=== PATIENT | male | born 1960 | race Caucasian/White ===

== ENCOUNTER 2018-12-06 11:24 | Emergency (ER) | payer OTHER ==
[2018-12-06] MEDS ORDERED: LABETALOL 20 MG/4ML SYRINGE IV ONE (12:40)
--- NOTE | 2018-12-06 12:42 | RAD REPORT ---
EXAM DESCRIPTION: CT - Head Brain Wo Cont - 12/06/2018 12:33 pm CLINICAL HISTORY: HEADACHE COMPARISON: HEAD BRAIN W O CONTRAST dated 07/13/2014; HEAD BRAIN W O CONTRAST dated 05/16/2013 TECHNIQUE: All CT scans are performed using dose optimization technique as appropriate and may inclu de automated exposure control or mA/KV adjustment according to patient size. FINDINGS: No intracranial hemorrhage, hydrocephalus or extra-axial fluid collection.No areas of brai n edema or evidence of midline shift. The paranasal sinuses and mastoids are clear. The calvarium is intact. IMPRESSION: No acute intracranial abnormality.
--- NOTE | 2018-12-06 12:49 | RAD REPORT ---
EXAM DESCRIPTION: RAD - Chest Single View - 12/06/2018 12:43 pm CLINICAL HISTORY: MALAISE Chest pain. COMPARISON: CHEST SINGLE VIEW dated 02/13/2011 FINDINGS: Portable technique limits examination quality. The lungs are grossly clear. The heart is normal in size. No displaced fractures. IMPRESSION: No acute intrathoracic process suspected.
[2018-12-06 13:19] LABS: Absolute Lymphocytes (CBC) 1.3 K/uL (0.7-4.9); Absolute Neutrophil 11.2 K/uL (1.8-8.0); Basophils % 0.3 % (0-1.3); Hematocrit 43.8 % (39.6-49.0); Lymphocytes % 9.9 % (15.3-44.8); MPV 8.1 fL (7.6-11.3); Monocytes % 7.1 % (3.3-12.3); RBC Red Blood Cell Count 4.38 M/uL (4.33-5.43)
[2018-12-06 13:30] LABS: Protime INR 0.84
[2018-12-06 13:44] LABS: ALT/SGPT 70 U/L (12-78); AST/SGOT 44 U/L (15-37); Albumin 3.7 g/dL (3.4-5.0); Alkaline Phosphatase 54 U/L (45-117); BUN Blood Urea Nitrogen 18 mg/dL (7-18); Bicarbonate 29 mmol/L (21-32); Bilirubin Direct 0.2 mg/dL (0-0.2); Bilirubin Total 0.6 mg/dL (0.2-1.0); Glucose Level 131 mg/dL (74-106); Magnesium 2.8 mg/dL (1.8-2.4); NT PRO-BNP 58 pg/mL (<125); Potassium 4.2 mmol/L (3.5-5.1); Protein, Total 7.2 g/dL (6.4-8.2); Sodium Level 136 mmol/L (136-145); Troponin (Emerg Dept Use Only) < 0.02 ng/mL (0.0-0.045)
--- NOTE | 2018-12-06 14:23 | ER ---
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 Transition of care: patient was not received from another setting of care. Onset of symptoms was December 06, 2018. Risk Assessment: Do you want to hurt yourself or someone else? Patient reports no desire to harm self or others. Initial Sepsis Screen: Does the patient meet any 2 criteria? No. Patient's initial sepsis screen is negative. Does the patient have a suspected source of infection? No. Patient's initial sepsis screen is negative. Care prior to arrival: None. 11:36 Method Of Arrival: Ambulatory ph 11:36 Acuity: LOLI 3 ph Historical: - Allergies: 11:41 No Known Allergies; ph - Home Meds: 11:41 Allopurinol Oral [Active]; Vasotec Oral [Active]; Niacin Oral [Active]; aspirin 81 mg ph Oral TbEC 1 tab once daily [Active]; Omeprazole Oral [Active]; - PMHx: 11:41 Hypertension; Gout; GERD; ph - Immunization history:: Adult Immunizations unknown. - Social history:: Smoking status: Patient/guardian denies using tobacco. - Ebola Screening: : No symptoms or risks identified at this time. Screenin:45 Abuse screen: Denies threats or abuse. Nutritional screening: No deficits noted. em Tuberculosis screening: No symptoms or risk factors identified. Fall Risk None identified. Assessment: 12:35 General: Appears in no apparent distress. comfortable, Behavior is calm, cooperative. em Pain: Denies pain. Quality of pain is described as pressure, Pain began several weeks. Neuro: Level of Consciousness is awake, alert, obeys commands, Oriented to person, place, time, situation, Reports head feeling like there's pressure in it. Denies weakness dizziness. Cardiovascular: Capillary refill < 3 seconds Patient's skin is warm and dry. Rhythm is sinus rhythm. Respiratory: Airway is patent Respiratory effort is even, unlabored, Respiratory pattern is regular, symmetrical. GI: Abdomen is obese, Patient currently denies nausea, vomiting. : No signs and/or symptoms were reported regarding the genitourinary system. Derm: Skin is intact, Skin is pink, warm \\T\\ dry. Musculoskeletal: Range of motion: intact in all extremities. 12:45 Reassessment: Patient appears in no apparent distress at this time. Patient and/or iw family updated on plan of care and expected duration. Pain level reassessed. Patient is alert, oriented x 3, equal unlabored respirations, skin warm/dry/pink. I agree with above assessment by Tristan Armando LVN. 13:58 Reassessment: Patient appears in no apparent distress at this time. Patient and/or em family updated on plan of care and expected duration. Pain level reassessed. Patient is alert, oriented x 3, equal unlabored respirations, skin warm/dry/pink. Patient states feeling better. Patient states symptoms have improved. 15:03 Reassessment: Patient appears in no apparent distress at this time. Patient and/or em family updated on plan of care and expected duration. Pain level reassessed. Patient is alert, oriented x 3, equal unlabored respirations, skin warm/dry/pink. BP 112/58, HR 91, provider notified, new medication orders received Patient denies pain at this time. Patient states feeling better. Vital Signs: 11:39 BP 174 / 108; Pulse 97; Resp 16; Temp 97.6; Pulse Ox 97% on R/A; ph 13:00 BP 174 / 110; Pulse 106; Resp 18; Pulse Ox 98% on R/A; Pain 0/10; em 13:18 BP 162 / 102; Pulse 93; Resp 22; Pulse Ox 96% on R/A; em 13:59 BP 159 / 94; Pulse 90; Resp 21; Pulse Ox 97% on R/A; Pain 0/10; em 15:04 BP 176 / 111; Pulse 91; Resp 21; Pulse Ox 100% on R/A; Pain 0/10; em ED Course: 11:26 Patient arrived in ED. as 11:39 Triage completed. ph 11:41 Arm band placed on. ph 11:51 Tristan Armando LVN is Primary Nurse. em 11:55 Jim Hirsch MD is Attending Physician. gs 12:[address] via wheelchair. jj2 12:34 CT Head Brain wo Cont In Process Unspecified. EDMS 12:43 X-ray completed. Patient tolerated procedure well. Patient moved back from radiology. jb2 12:44 XRAY Chest (1 view) In Process Unspecified. EDMS 12:45 Patient has correct armband on for positive identification. Placed in gown. Bed in low em position. Call light in reach. Side rails up X2. Adult w/ patient. jeweler apprentice on. Pulse ox on. NIBP on. 13:00 Initial lab(s) drawn, by me, sent to lab. Inserted saline lock: 20 gauge in right em antecubital area, using aseptic technique. Blood collected. 13:00 Patient maintains SpO2 saturation greater than 95% on room air. em 15:06 No provider procedures requiring assistance completed. IV discontinued, intact, em bleeding controlled, No redness/swelling at site. Pressure dressing applied. Administered Medications: 13:10 Drug: Labetalol 20 mg Route: IVP; Infused Over: 2 mins; Site: right antecubital; tw2 14:00 Follow up: Response: No adverse reaction; Blood pressure is lowered em 15:05 Drug: Labetalol 50 mg Route: PO; em 15:06 Follow up: Response: Medication administered at discharge. em Outcome: 14:23 Discharge ordered by . gs 15:06 Discharged to home ambulatory, with family. em 15:06 Condition: good 15:06 Discharge instructions given to patient, family, Instructed on discharge instructions, follow up and referral plans. medication usage, Demonstrated understanding of instructions, follow-up care, medications, Prescriptions given X 1. 15:10 Patient left the ED. em Signatures: Dispatcher [employer] EDMS Chris Ngo jb2 Ismael Carrillo jj2 Tristan Armando LVN ASSISTANT CASE MANAGER em Whitney Peralta Irene, RN RN Cecilia Michaud RN RN Jeanie Metz RN RN tw2 Jim Hirsch, MD gs
--- NOTE | 2018-12-06 14:24 | EDPHYS ---
Physician Documentation [facility] Name: Walt Alvarado Age: 58 yrs Sex: Male : 1960 Arrival Date: 12/06/2018 Time: 11:26 Bed 19 Private MD: ED Physician Jim Hirsch HPI: 12/06 14:17 This 58 yrs old Male presents to ER via Ambulatory with complaints of Chest gs Pain, Neck Pain, >24Hrs Old, Eye Pain. 14:17 The patient or guardian reports chest pain that is located primarily in the anterior gs chest wall. Onset: 2 day(s) ago. The pain does not radiate. Associated signs and symptoms: Pertinent positives: hypertension,headache. The chest pain is described as dull. Duration: The patient or guardian reports multiple episodes, that wax and wane, with no pattern. Modifying factors: The symptoms are alleviated by nothing. the symptoms are aggravated by nothing. Severity of pain: At its worst the pain was mild in the emergency department the pain has resolved. The patient has experienced similar episodes in the past, a few times. Historical: - Allergies: 11:41 No Known Allergies; ph - Home Meds: 11:41 Allopurinol Oral [Active]; Vasotec Oral [Active]; Niacin Oral [Active]; aspirin 81 mg ph Oral TbEC 1 tab once daily [Active]; Omeprazole Oral [Active]; - PMHx: 11:41 Hypertension; Gout; GERD; ph - Immunization history:: Adult Immunizations unknown. - Social history:: Smoking status: Patient/guardian denies using tobacco. - Ebola Screening: : No symptoms or risks identified at this time. ROS: 14:17 All other systems are negative. gs Exam: 14:17 Head/Face: Normocephalic, atraumatic. Eyes: Pupils equal round and reactive to light, gs extra-ocular motions intact. Lids and lashes normal. Conjunctiva and sclera are non-icteric and not injected. Cornea within normal limits. Periorbital areas with no swelling, redness, or edema. ENT: Nares patent. No nasal discharge, no septal abnormalities noted. Tympanic membranes are normal and external auditory canals are clear. Oropharynx with no redness, swelling, or masses, exudates, or evidence of obstruction, uvula midline. Mucous membranes moist. Neck: Trachea midline, no thyromegaly or masses palpated, and no cervical lymphadenopathy. Supple, full range of motion without nuchal rigidity, or vertebral point tenderness. No Meningismus. Chest/axilla: Normal chest wall appearance and motion. Nontender with no deformity. No lesions are appreciated. Cardiovascular: Regular rate and rhythm with a normal S1 and S2. No gallops, murmurs, or rubs. Normal PMI, no JVD. No pulse deficits. Respiratory: Lungs have equal breath sounds bilaterally, clear to auscultation and percussion. No rales, rhonchi or wheezes noted. No increased work of breathing, no retractions or nasal flaring. Abdomen/GI: Soft, non-tender, with normal bowel sounds. No distension or tympany. No guarding or rebound. No evidence of tenderness throughout. Back: No spinal tenderness. No costovertebral tenderness. Full range of motion. Skin: Warm, dry with normal turgor. Normal color with no rashes, no lesions, and no evidence of cellulitis. MS/ Extremity: Pulses equal, no cyanosis. Neurovascular intact. Full, normal range of motion. Neuro: Awake and alert, GCS 15, oriented to person, place, time, and situation. Cranial nerves II-XII grossly intact. Motor strength 5/5 in all extremities. Sensory grossly intact. Cerebellar exam normal. Normal gait. 14:17 Constitutional: The patient appears alert, awake. 14:17 Head/face: Noted is general appearance flushed. 14:48 ECG was reviewed by the Attending Physician. Vital Signs: 11:39 BP 174 / 108; Pulse 97; Resp 16; Temp 97.6; Pulse Ox 97% on R/A; ph 13:00 BP 174 / 110; Pulse 106; Resp 18; Pulse Ox 98% on R/A; Pain 0/10; em 13:18 BP 162 / 102; Pulse 93; Resp 22; Pulse Ox 96% on R/A; em 13:59 BP 159 / 94; Pulse 90; Resp 21; Pulse Ox 97% on R/A; Pain 0/10; em 15:04 BP 176 / 111; Pulse 91; Resp 21; Pulse Ox 100% on R/A; Pain 0/10; em MDM: 12:20 Patient medically screened. gs 14:17 Differential diagnosis: coronary artery disease malignant htn. Data reviewed: vital gs signs, nurses notes. Counseling: I had a detailed discussion with the patient and/or guardian regarding: the historical points, exam findings, and any diagnostic results supporting the discharge/admit diagnosis, lab results, radiology results, the need for outpatient follow up, a software tools developer. Response to treatment: the patient's symptoms have resolved after treatment, the patient's pain is gone, bp better. 12/06 12:22 Order name: Basic Metabolic Panel; Complete Time: 13:48 12/06 12:22 Order name: CBC with Diff; Complete Time: 13:26 12/06 12:22 Order name: LFT's; Complete Time: 13:48 12/06 12:22 Order name: Magnesium; Complete Time: 13:48 12/06 12:22 Order name: NT PRO-BNP; Complete Time: 13:48 12/06 12:22 Order name: PT-INR; Complete Time: 13:48 12/06 12:22 Order name: Troponin (emerg Dept Use Only); Complete Time: 13:48 12/06 12:22 Order name: XRAY Chest (1 view); Complete Time: 12:53 12/06 12:22 Order name: EKG; Complete Time: 12:23 12/06 12:22 Order name: Cardiac monitoring; Complete Time: 14:02 12/06 12:22 Order name: TSH; Complete Time: 13:48 12/06 12:22 Order name: CT Head Brain wo Cont; Complete Time: 12:53 12/06 12:22 Order name: EKG - Nurse/Tech; Complete Time: 14:02 12/06 12:22 Order name: IV Saline Lock; Complete Time: 14:02 12/06 12:22 Order name: Labs collected and sent; Complete Time: 14:02 12/06 12:22 Order name: O2 Per Protocol; Complete Time: 14:02 12/06 12:22 Order name: O2 Sat Monitoring; Complete Time: 14:02 gs EC:48 Rate is 102 beats/min. Rhythm is regular. QRS interval is normal. QT interval is gs normal. T waves are Normal. No ST changes noted. Clinical impression: Sinus tachycardia. Interpreted by me. Administered Medications: 13:10 Drug: Labetalol 20 mg Route: IVP; Infused Over: 2 mins; Site: right antecubital; tw2 14:00 Follow up: Response: No adverse reaction; Blood pressure is lowered em 15:05 Drug: Labetalol 50 mg Route: PO; em 15:06 Follow up: Response: Medication administered at discharge. em Disposition: 12/06/18 14:23 Discharged to Home. Impression: Hypertensive heart disease, Thyrotoxicosis [hyperthyroidism]. - Condition is Stable. - Discharge Instructions: Hypertension. - Prescriptions for labetalol 100 mg Oral tablet - take 1 tablet by ORAL route 2 times per day; 28 tablet. - Medication Reconciliation Form, Thank You Letter, Antibiotic Education, Prescription Opioid Use form. - Follow up: Private Physician; When: 2 - 3 days; Reason: Re-evaluation by your physician. Signatures: Dispatcher [employer] Tristan Lyman, INDUSTRIAL ECOLOGIST INDUSTRIAL ECOLOGIST Cecilia Michaud, RN RN Jeanie Metz RN RN tw2 Jim Hirsch MD MD Corrections: (The following items were deleted from the chart) 15:10 14:23 12/06/2018 14:23 Discharged to Home. Impression: Hypertensive heart disease; em Thyrotoxicosis [hyperthyroidism]. Condition is Stable. Forms are Medication Reconciliation Form, Thank You Letter, Antibiotic Education, Prescription Opioid Use. Follow up: Private Physician; When: 2 - 3 days; Reason: Re-evaluation by your physician. gs
[2018-12-06] MEDS ORDERED: LABETALOL HCL 100 MG TAB ONE (15:06)
[2018-12-06 15:34] VITALS: TEMP 97.6
[2018-12-06 15:39] VITALS: BP 176/111; O2SAT 100
--- NOTE | 2018-12-06 16:01 | EKG ---
Test Date: 2018-12-06 Test Time: 12:43:22 Machine Ii Coremaker: PB MEASUREMENT RESULTS: Intervals: Rate: 102 GA: 158 QRSD: 90 QT: 358 QTc: 466 [place]: P: 44 GA: 158 QRS: -6 T: 33 INTERPRETIVE STATEMENTS: Sinus tachycardia Voltage criteria for left ventricular hypertrophy Abnormal ECG Compared to ECG 02/13/2011 20:49:01 Left ventricular hypertrophy now present Sinus bradycardia no longer present Electronically Signed On 12-06-18 16:00:54 VICE PRESIDENT OF PRODUCT MARKETING by Flecther Guzman
== END 2018-12-06 15:10 | disposition home or self-care (01) ==
LOC: ER 11:24
DX: I11.9 Hypertensive heart disease without heart failure (principal); E05.90 Thyrotoxicosis, unspecified without thyrotoxic crisis or storm; R94.31 Abnormal electrocardiogram [ECG] [EKG]; K21.9 Gastro-esophageal reflux disease without esophagitis; M10.9 Gout, unspecified; Z79.82 Long term (current) use of aspirin; Z79.899 Other long term (current) drug therapy
CPT/HCPCS: 36415; 70450; 71045; 80048; 80076; 83735; 83880; 84443; 84484; 85025; 85610; 93005; 96374; 99285